=== PATIENT | female | born 1970 | race Caucasian/White ===

== ENCOUNTER 2017-06-04 16:22 | Emergency (ER) | payer OTHER | END 2017-06-04 18:15 | disposition home or self-care (01) | LOC: D.ER 16:22 | DX: S80.01XA Contusion of right knee, initial encounter (principal); W10.9XXA Fall (on) (from) unspecified stairs and steps, initial encounter; Y93.89 Activity, other specified; Y92.029 Unspecified place in mobile home as the place of occurrence of the external cause; S93.401A Sprain of unspecified ligament of right ankle, initial encounter; S81.011A Laceration without foreign body, right knee, initial encounter; M32.9 Systemic lupus erythematosus, unspecified ==

== ENCOUNTER 2018-11-18 16:35 | Inpatient (IN) | payer BC, MEDICARE ==
[~2018-11-18] VITALS: Ht 165.1 cm; Wt 86.4 kg
[2018-11-18] MEDS ORDERED: PLAQUENIL (16:59)
[2018-11-18] MEDS ORDERED: SALAGEN5 MG (17:00)
[2018-11-18] MEDS ORDERED: MEDROL4 MG PO (17:00)
[2018-11-18] MEDS ORDERED: ALDACTONE25 MG PO (17:00)
[2018-11-18] MEDS ORDERED: PEPCID AC20 MG PO ×2 (17:01→20:20)
[2018-11-18] MEDS ORDERED: VITAMIN D31000 UNIT PO (17:01)
[2018-11-18] MEDS ORDERED: ZYRTEC10 MG PO (17:01)
[2018-11-18] MEDS ORDERED: VALTREX1000 MG (17:02)
[2018-11-18] MEDS ORDERED: PREDNISONE10 MG PO (17:02)
[2018-11-18 17:44] LABS: BASOPHILS 0 % (0-2); EOSINOPHILS 0 % (0-7); HEMATOCRIT 41.5 % (36.0-48.0); HEMOGLOBIN 14.6 g/dL (12-16); IMMATURE GRANULOCYTES 0.2 % (0-5); LYMPHOCYTES 4.4 % (15-50); MCH 32.5 pg (26.0-34.0); MCHC 35.2 g/dL (31.0-37.0); MCV 92.4 fL (80.0-100.0); MEAN PLATELET VOLUME 10.6 fL (7.4-10.4); MONOCYTES 2.3 % (2-11); NEUTROPHILS 93.1 % (40-80); PLATELET COUNT 215 10x3/uL (130-400); RBC 4.49 10x6/uL (4.00-5.40); RDW 13.1 % (11.5-14.5); WBC 13.3 10x3/uL (4.8-10.8)
[2018-11-18 17:59] LABS: ALBUMIN 2.9 g/dL (3.4-5.0); ANION GAP 15.5 mmol/L (8-16); BILIRUBIN - TOTAL 0.4 mg/dL (0.2-1.3); CALCIUM 9.4 mg/dL (8.5-10.1); CARBON DIOXIDE 25.2 mmol/L (21.0-32.0); POTASSIUM - SERUM 3.7 mmol/L (3.5-5.1); PROTEIN - SERUM 7.7 g/dL (6.4-8.2)
[2018-11-18 18:17] LABS: C-REACTIVE PROTEIN 72.3 mg/dL (0.0-0.9)
[2018-11-18 18:30] LABS: APPEARANCE CLEAR (CLEAR); BILIRUBIN 1+ (NEGATIVE); COLOR DK YELLOW (YELLOW); GLUCOSE NEGATIVE (NEGATIVE); KETONE NEGATIVE (NEGATIVE); NITRITE POSITIVE (NEGATIVE); PROTEIN 1+ mg/dL (NEGATIVE); SPECIFIC GRAVITY 1.025 (1.005-1.020)
[2018-11-18 18:37] LABS: WHITE CELLS - URINE 0-5 /hpf (0-5)
[2018-11-18 18:38] LABS: BACTERIA FEW /hpf (NONE SEEN); EPITHELIAL CELLS 0-5 /hpf (0-5)
[2018-11-18 18:47] LABS: APTT 30.9 SECONDS (22.8-39.4); INR 1.06 (0.85-1.17); PROTIME 13.3 SECONDS (11.6-15.0)
[2018-11-18 19:15] LABS: CKMB 0.3 U/L (0.0-3.6); CREATINE KINASE 30 UL (21-215)
[2018-11-18 19:16] LABS: TROPONIN-I < 0.017 ng/mL (0.000-0.060)
--- NOTE | 2018-11-18 19:50 | NUR ---
RECEIVED PT FROM ER VIA W/C. AMBULATORY. ALERT AND ORIENTED X4. VERY TALKATIVE. NO DISTRESS. STATES SHE HAD NO IDEA SHE HAD PNEUMONIA BECAUSE SHE ALWAYS HAS SOME SOB. DENIES COUGH. REPORTS SOME GEN WEAKNESS. RESP EVEN AND NONLABORED. BBS DIMINISHED IN BILAT UPPER LOBES. ABD OBESE, NONTENDER. BS PRESENT X4 QUADS. 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 STATES IT CAME UP TODAY. HAS HX OF LUPUS AND MRSA. RT KNEE IS RED AND SLIGHTLY SWOLLEN AND FEELS LIKE IT HAS FLUID IN IT. SALINE LOCK NOTED TO LT FOREARM WITH ROCEPHIN INFUSING. DENIES PAIN. ACCOMPANIED BY FAMILY. SR ELEVATED X2. CL IN REACH.
[2018-11-18 20:40] VITALS: BP 123/84
[2018-11-18 23:27] VITALS: BP 123/84; BMI 31.6
[2018-11-19 00:15] VITALS: BP 109/50
[2018-11-19 01:32] LABS: CKMB 0.3 U/L (0.0-3.6); CREATINE KINASE 20 UL (21-215); TROPONIN-I < 0.017 ng/mL (0.000-0.060)
--- NOTE | 2018-11-19 04:17 | NUR ---
HAS RESTED WELL TONIGHT. NO DISTRESS. CL IN REACH.
[2018-11-19 04:46] VITALS: BP 112/62
[2018-11-19 07:30] LABS: CKMB 0.2 U/L (0.0-3.6); CREATINE KINASE 22 UL (21-215)
[2018-11-19 07:31] LABS: TROPONIN-I < 0.017 ng/mL (0.000-0.060)
[2018-11-19 07:45] LABS: BASOPHILS 0.1 % (0-2); EOSINOPHILS 0.7 % (0-7); HEMATOCRIT 35.1 % (36.0-48.0); HEMOGLOBIN 12.1 g/dL (12-16); IMMATURE GRANULOCYTES 0.2 % (0-5); LYMPHOCYTES 7.2 % (15-50); MCH 32.1 pg (26.0-34.0); MCHC 34.5 g/dL (31.0-37.0); MCV 93.1 fL (80.0-100.0); MEAN PLATELET VOLUME 10.9 fL (7.4-10.4); NEUTROPHILS 84.8 % (40-80); PLATELET COUNT 176 10x3/uL (130-400); RBC 3.77 10x6/uL (4.00-5.40); RDW 13.2 % (11.5-14.5)
--- NOTE | 2018-11-19 08:00 | NUR ---
AWAKE AND ALERT. ORIENTED X3. NO C/O AT THIS TIME. LUNGS ARE CLEAR BUT DIMINISHED THROUGHOUT, NO COUGH NOTED. SKIN IS INTACT WITH BRUISING NOTED TO LOWER ABDOMEN AND OUTER TOPS OF THIGHS. WILL MONITOR. IV TO LEFT WRIST IS PATENT WITHOUT REDNESS AT INSERTION SITE. DENIES NEEDS. BREAKFAST SERVED IN ROOM.
[2018-11-19 08:01] LABS: WBC 8.8 10x3/uL (4.8-10.8)
[2018-11-19 09:33] VITALS: BP 117/71
--- NOTE | 2018-11-19 10:39 | NUR ---
ATE MOST OF BREAKFAST. DENIES NEEDS.
[2018-11-19 11:06] VITALS: Ht 165.1 cm; Wt 86.4 kg
[2018-11-19 12:04] VITALS: BP 115/72
[2018-11-19 14:19] LABS: COMPLEMENT C4 22.3 mg/dL (17.4-52.2)
--- NOTE | 2018-11-19 14:44 | NUR ---
C/O NAUSEA AT THIS TIME. GIVEN 4MG ZOFRAN SLOW IVP FOR SAME. WILL MONITOR.
[2018-11-19 18:15] VITALS: BP 123/82
--- NOTE | 2018-11-19 19:15 | NUR ---
PT AAOX4. ABDOMEN PRESENTS WITH BRUISING AND RED STRETCH PAINTING. BRUISING EXTENDS TO THE GROIN AND MID THIGH AREA. BRUISES ALSO EXTENDS TO BILATERAL SIDES. DENIES ITCHING AND SCRATCHING. DENIES PAIN. STATES "I HAVE LUPUS AND EVERYTIME I HAVE A FLARE UP ITS SOME OFF THE WALL REACTION." IV TO THE RIGHT FOREARM IS SALINE LOCKED. PT WEARING TELEMETRY. DENIES NEEDS AT THIS TIME. HAS CALL LIGHT IN REACH. REFUSES TO WEAR SCD'S THAT ARE ORDERED. HAS COMPRESSION SOCKS AT BEDSIDE THAT PT STATES WEARS AT NIGHT.
[2018-11-19 20:27] VITALS: BP 130/84
--- NOTE | 2018-11-20 04:10 | NUR ---
I have reviewed this patient and I concur with the Shift Assessment completed by the Licensed Practical Nurse today this shift.
[2018-11-20 05:28] VITALS: BP 114/61
[2018-11-20 07:07] LABS: CALC OSMOLALITY 285 mosm/kg (275-300); CALCIUM 8.9 mg/dL (8.5-10.1); CARBON DIOXIDE 25.5 mmol/L (21.0-32.0); CHLORIDE - SERUM 107 mmol/L (98-107); GLUCOSE 128 mg/dL (74-106); POTASSIUM - SERUM 4.2 mmol/L (3.5-5.1); SODIUM 141 mmol/L (136-145); UREA NITROGEN 20 mg/dL (7-18)
[2018-11-20 07:12] LABS: CREATININE - SERUM 0.7 mg/dL (0.6-1.3); eGFR NON AFRICAN AMERICAN > 90 mL/min (90-120)
[2018-11-20 07:13] LABS: BASOPHILS 0 % (0-2); EOSINOPHILS 0 % (0-7); HEMATOCRIT 38.4 % (36.0-48.0); HEMOGLOBIN 13.1 g/dL (12-16); IMMATURE GRANULOCYTES 0.2 % (0-5); LYMPHOCYTES 6.1 % (15-50); MCH 31.7 pg (26.0-34.0); MCHC 34.1 g/dL (31.0-37.0); MEAN PLATELET VOLUME 10.7 fL (7.4-10.4); MONOCYTES 2.5 % (2-11); NEUTROPHILS 91.2 % (40-80); RBC 4.13 10x6/uL (4.00-5.40); RDW 12.7 % (11.5-14.5); WBC 8.4 10x3/uL (4.8-10.8)
[2018-11-20 07:14] LABS: PLATELET COUNT 223 10x3/uL (130-400)
--- NOTE | 2018-11-20 07:43 | NUR ---
RESUMING PT CARE, PT SITTING UP IN BED, ALERT AND ORIENTED. CALL LIGHT IN REACH, WILL CONTINUE TO MONITOR AND FOLLOW PLAN OF CARE.
[2018-11-20 07:49] VITALS: BP 133/85
[2018-11-20 08:20] LABS: ERYTHROCYTE SEDIMENTATION RATE 58 mm/hr (0-20)
[2018-11-20] MEDS ORDERED: ZITHROMAX500 MG PO (08:29)
[2018-11-20] MEDS ORDERED: OMNICEF300 MG PO (08:30)
[2018-11-20] MEDS ORDERED: PREDNISONE10 MG PO (08:31)
--- NOTE | 2018-11-20 09:53 | NUR ---
PER TWYLA FLORES APRN, MAY CALL IN YOHAN OSWALD TO PT[facility]S [facility] TO GO HOME WITH, SPOKE WITH TEREZA CURRAN AND SHE WILL CALL THEM IN ALONG WITH DOING HER D/C PAPERWORK.
[2018-11-20] MEDS ORDERED: ZOFRAN4 MG PO (10:19)
--- NOTE | 2018-11-20 10:22 | NUR ---
RX FOR ZOFRAN 4 MG #10NR CALLED IN TO [facility]. OK PER TWYLA FLORES APN.
--- NOTE | 2018-11-20 10:24 | MORECARE ---
CASE MANAGEMENT DISCHARGE SUMMARY PATIENT: MICHELLE GONZALEZ UNIT: [id number] ADM DATE: 11/18/18 AGE: 48 : 70 SEX: F ROOM/BED: D.1201 AUTHOR: ELDA ROBERT PHYSICIAN: REFERRING PHYSICIAN: MISTI EDMOND MD DATE OF SERVICE: 11/20/18 Discharge Plan Patient Name: MICHELLE GONZALEZ Facility: [facility]:[place] : 1970 Planned Disposition: Home Anticipated Discharge Date: Discharge Date: Expected LOS: Initial Reviewer: [email or web address] Initial Review Date: 11/20/2018 Generated: 11/20/18 11:24 am DCPIA - Discharge Planning Initial Assessment Updated by [email or web address]: Margaux Vidal on 11/20/18 10:22 am * Is the patient Alert and Oriented? Yes * How many steps to enter\exit or inside your home? * PCP cait Zhong APN * Pharmacy [facility] * Preadmission Environment Home with Family * ADLs Independent * List name and contact numbers for known caregivers / representatives who currently or will assist patient after discharge: * Verbal permission to speak to the caregivers and representatives has been obtained from the patient. N/A * Community resources currently utilized None * Additional services required to return to the preadmission environment? No * Can the patient safely return to the preadmission environment? Yes * Has this patient been hospitalized within the prior 30 days at any hospital? No Patient Name: MICHELLE GONZALEZ Page [id number] at 1024 All edits/amendments must be made on the electronic document DICTATION DATE: 11/20/18 1023 ENGINE REPAIRER SERVICE: VALARIE 11/20/18 1023 RPT#: [id number] DC DATE: STATUS: ADM IN [facility] [address] [place] [address] END OF REPORT
--- NOTE | 2018-11-20 10:30 | MORECARE ---
CASE MANAGEMENT DISCHARGE SUMMARY PATIENT: MICHELLE GONZALEZ UNIT: [id number] ADM DATE: 11/18/18 AGE: 48 : 70 SEX: F ROOM/BED: D.1201 AUTHOR: JAKOB,DOC PHYSICIAN: REFERRING PHYSICIAN: MISTI EDMOND MD DATE OF SERVICE: 11/20/18 Discharge Plan Patient Name: MICHELLE GONZALEZ Facility: [facility]:[place] : 1970 Planned Disposition: Home Anticipated Discharge Date: Discharge Date: Expected LOS: Initial Reviewer: [email or web address] Initial Review Date: 11/20/2018 Generated: 11/20/18 11:30 am Comments DCP- Discharge Planning Updated by [email or web address]: Margaux Vidal on 11/20/18 9:[address] Patient Name: MICHELLE GONZALEZ Admission Status: ER Accout number: [id number] Admission Date: 11-18-2018 : 1970 Admission Diagnosis: Attending: MISTI EDMOND Current LOS: 2 Anticipated DC Date: Planned Disposition: Home Primary Insurance: MEDICARE A & B Discharge Planning Comments: Cm met with pt to complete initial DC pans. Educated pt on CM role and verbal consent given to do assessment. Pt lives at home with and he will drive her home at DC. CM discussed the availability of Home health, rehab, and DME services. Pt denies the need for any dc needs at this time. CM will continue to follow and assist with dc needs and plans, IMM served Central Office Installer: Margaux Vidal DCPIA - Discharge Planning Initial Assessment Updated by [email or web address]: Margaux Vidal on 11/20/18 10:22 am * Is the patient Alert and Oriented? Yes * How many steps to enter\exit or inside your home? * PCP cait Zhong APN * Pharmacy [facility] * Preadmission Environment Home with Family * ADLs Independent * List name and contact numbers for known caregivers / representatives who currently or will assist patient after discharge: * Verbal permission to speak to the caregivers and representatives has been obtained from the patient. N/A * Community resources currently utilized None * Additional services required to return to the preadmission environment? No * Can the patient safely return to the preadmission environment? Yes * Has this patient been hospitalized within the prior 30 days at any hospital? No Coverage Notice Reviewer: [email or web address] Natali Vidal Notice Issued Date-Time: 11/20/2018 9:30 Notice Type: IM Discharge Notice Notice Delivered To: Patient Relationship to Patient: Self Transportation Maintenance Specialist Name: Delivery Method: HAND - Hand Delivered Sandra Days: Prior Verbal Notification: Recipient Understood Notice: Yes Recipient Signature: Yes Med Rec Note Co-signed by Attending: Coverage Notice Comment: imm served Last DP export: 11/20/18 9:24 a Patient Name: MICHELLE GONZALEZ Page [phone] at 1030 All edits/amendments must be made on the electronic document DICTATION DATE: 11/20/18 1030 FINANCIAL PROJECT MANAGER: VALARIE 11/20/18 1030 RPT#: [id number] DC DATE: STATUS: ADM IN [facility] [address] [place] [address] END OF REPORT
--- NOTE | 2018-11-20 10:45 | NUR ---
D/C INSTRUCTIONS GONE OVER WITH PT AND SPOUSE, COPY GIVEN. 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 TAKEN TO CAR VIA WHEELCHAIR.
--- NOTE | 2018-11-20 12:55 | MORECARE ---
CASE MANAGEMENT DISCHARGE SUMMARY PATIENT: MICHELLE GONZALEZ UNIT: [id number] ADM DATE: 11/18/18 AGE: 48 : 70 SEX: F ROOM/BED: D.1201 AUTHOR: JAKOB,DOC PHYSICIAN: REFERRING PHYSICIAN: MISTI EDMOND MD DATE OF SERVICE: 11/20/18 Discharge Plan Patient Name: MICHELLE GONZALEZ Facility: [facility]:[place] : 1970 Planned Disposition: Home Anticipated Discharge Date: Discharge Date: 11/20/2018 Expected LOS: Initial Reviewer: [email or web address] Initial Review Date: 11/20/2018 Generated: 11/20/18 1:55 pm Comments DCP- Discharge Planning Updated by [email or web address]: Margaux Vidal on 11/20/18 11:[address] Patient Name: MICHELLE GONZALEZ Admission Status: ER Accout number: [id number] Admission Date: 11-18-2018 : 1970 Admission Diagnosis: Attending: MISTI EDMOND Current LOS: 2 Anticipated DC Date: Planned Disposition: Home Primary Insurance: MEDICARE A & B Discharge Planning Comments: Cm met with pt to complete initial DC pans. Educated pt on CM role and verbal consent given to do assessment. Pt lives at home with and he will drive her home at DC.Pt agrees this is a safe dc. CM discussed the availability of Home health, rehab, and DME services. Pt denies the need for any dc needs at this time. CM will continue to follow and assist with dc needs and plans, IMM served Gut Sorter: Margaux Vidal DCPIA - Discharge Planning Initial Assessment Updated by [email or web address]: Margaux Vidal on 11/20/18 10:22 am * Is the patient Alert and Oriented? Yes * How many steps to enter\exit or inside your home? * PCP cait Zhong APN * Pharmacy [facility] * Preadmission Environment Home with Family * ADLs Independent * List name and contact numbers for known caregivers / representatives who currently or will assist patient after discharge: * Verbal permission to speak to the caregivers and representatives has been obtained from the patient. N/A * Community resources currently utilized None * Additional services required to return to the preadmission environment? No * Can the patient safely return to the preadmission environment? Yes * Has this patient been hospitalized within the prior 30 days at any hospital? No Coverage Notice Reviewer: [email or web address] Natali Vidal Notice Issued Date-Time: 11/20/2018 9:30 Notice Type: IM Discharge Notice Notice Delivered To: Patient Relationship to Patient: Self Carbonizer Name: Delivery Method: HAND - Hand Delivered Sandra Days: Prior Verbal Notification: Recipient Understood Notice: Yes Recipient Signature: Yes Med Rec Note Co-signed by Attending: Coverage Notice Comment: imm served Last DP export: 11/20/18 9:30 a Patient Name: MICHELLE GONZALEZ Page [phone] at 1255 All edits/amendments must be made on the electronic document DICTATION DATE: 11/20/18 125 SUPERVISOR STAVE CUTTING: VALARIE 11/20/18 1255 RPT#: [id number] DC DATE:11/20/18 STATUS: DIS IN [facility] [address] [place] [address] END OF REPORT
--- NOTE | 2018-11-20 13:34 | MORECARE ---
CASE MANAGEMENT DISCHARGE SUMMARY PATIENT: MICHELLE GONZALEZ UNIT: [id number] ADM DATE: 11/18/18 AGE: 48 : 70 SEX: F ROOM/BED: D.1201 AUTHOR: ELDA ROBERT PHYSICIAN: REFERRING PHYSICIAN: MISTI EDMOND MD DATE OF SERVICE: 11/20/18 Discharge Plan Patient Name: MICHELLE GONZALEZ Facility: [facility]:[place] : 1970 Planned Disposition: Home Anticipated Discharge Date: Discharge Date: 11/20/2018 Expected LOS: Initial Reviewer: [email or web address] Initial Review Date: 11/20/2018 Generated: 11/20/18 2:34 pm Comments DCP- Discharge Planning Updated by [email or web address]: Margaux Vidal on 11/20/18 12:[address] Patient Name: MICHELLE GONZALEZ Admission Status: ER Accout number: [id number] Admission Date: 11-18-2018 : 1970 Admission Diagnosis: Attending: MISTI EDMOND Current LOS: 2 Anticipated DC Date: Planned Disposition: Home Primary Insurance: MEDICARE A & B Discharge Planning Comments: Cm met with pt to complete initial DC pans. Educated pt on CM role and verbal consent given to do assessment. Pt lives at home with and he will drive her home at DC.Pt agrees this is a safe dc. CM discussed the availability of Home health, rehab, and DME services. Pt denies the need for any dc needs at this time. CM will continue to follow and assist with dc needs and plans, IMM delivered, explained, signed and copy placed in MR and copy left for PT Ob Gyn: Margaux Vidal DCP- Discharge Planning Updated by [id number]: Margaux Vidal on 11/20/18 12:[address] Patient Name: MICHELLE GONZALEZ Admission Status: ER Accout number: [id number] Admission Date: 11-18-2018 : 1970 Admission Diagnosis: Attending: MISTI EDMOND Current LOS: 2 Anticipated DC Date: Planned Disposition: Home Primary Insurance: BLUE CROSS OUT OF STATE Discharge Planning Comments: PT dc'd home Ob Gyn: Margaux Vidal DCPIA - Discharge Planning Initial Assessment Updated by [email or web address]: Margaux Vidal on 11/20/18 10:22 am * Is the patient Alert and Oriented? Yes * How many steps to enter\exit or inside your home? * PCP cait Zhong APN * Pharmacy [facility] * Preadmission Environment Home with Family * ADLs Independent * List name and contact numbers for known caregivers / representatives who currently or will assist patient after discharge: * Verbal permission to speak to the caregivers and representatives has been obtained from the patient. N/A * Community resources currently utilized None * Additional services required to return to the preadmission environment? No * Can the patient safely return to the preadmission environment? Yes * Has this patient been hospitalized within the prior 30 days at any hospital? No Coverage Notice Reviewer: [id number] - Margaux Vidal Notice Issued Date-Time: 11/20/2018 9:30 Notice Type: IM Discharge Notice Notice Delivered To: Patient Relationship to Patient: Self Leather Etcher Name: Delivery Method: HAND - Hand Delivered Sandra Days: Prior Verbal Notification: Recipient Understood Notice: Yes Recipient Signature: Yes Med Rec Note Co-signed by Attending: Coverage Notice Comment: imm served Last DP export: 11/20/18 11:55 a Patient Name: MICHELLE GONZALEZ Page [phone] at 1334 All edits/amendments must be made on the electronic document DICTATION DATE: 11/20/181333 SUGAR CANE PLANTER: VALARIE 11/20/18 1334 RPT#: [id number] DC DATE:11/20/18 STATUS: DIS IN [facility] [address] [place] [address] END OF REPORT
--- NOTE | 2018-11-20 16:12 | CN ---
PATIENT NAME:LORI GONZALEZ MEDICAL RECORD: [id number] : [birth year] LOCATION:[place] D.1201 ADMIT DATE: 11/18/18 ACCOUNT: [id number] CONSULTING PHYSICIAN: SHASHANK COTTO MD REFERRING PHYSICIAN: MISTI EDMOND MD DATE OF CONSULTATION: 11/19/2018 RHEUMATOLOGY CONSULTATION HISTORY OF PRESENT ILLNESS: Lori Gonzalez is a 48-year-old woman well known to me, whom I am asked to see regarding acute symptoms. The patient has a very longstanding history of SLE and has had very quiet inactive disease for many years. At home, she was well managed on Medrol 4 mg daily, hydroxychloroquine 200 mg b.i.d. She has dry eyes, for which she uses pilocarpine. Lab serologies performed in January 2018 have been remarkably stable with low titer MARIANNE, normal C3, normal C4, negative DNA, normal renal function, normal CBC. She often has mild microhematuria, which has been a chronic problem, but no evidence of active nephritis. The patient reports that 9 days ago she had not eaten well. That day was at a store, felt lightheaded and weak, went home and ate. That evening, she had some shaking chills for less than 2 hours, resolved and has not recurred. About the next day, she had some apical anterior chest "heaviness," for which she used aspirin 81 mg once only and that did not recur. She has had a few recent aches and pains, which are nonspecific. However, over the last 24 hours, she has developed some slight erythema and tenderness over the right prepatellar area, but she denies any kneeling, squatting, or other direct trauma. She called the office late yesterday afternoon reporting some "petechiae" or bruising around her abdomen and anterior thighs. She was advised to head straight to the Emergency Room, which prompted her current admission. She has bruising type blotches over the lower abdomen, sides of her hips, anterolateral thighs. She does not have discrete petechiae. She does not have palpable purpura. The lesions do not extend below the knees except for some faint bruising today around the upper shins. These have not affected her arms or hands. On admission, she has remained afebrile and blood pressure has been normal. On admission, she had microhematuria with positive nitrite, few bacteria. Culture not reported. She had WBC of 13,300, hemoglobin 14.6, platelets 215,000. BUN 24, creatinine 1. AST 70, ALT 22, CPK is 30, C-reactive protein 72.3, albumin is 2.9, globulin is 4.8. Today WBC has decreased to 8800, hemoglobin 12.1, platelets 176,000. C3 of 133, C4 of 22. Troponin less than 0.017. Chest x-ray showed mild interstitial edema, possible small pleural effusion with adjacent atelectasis. On admission, the patient was continued on Medrol 4 mg daily and Solu-Medrol 40 mg IV daily was added. She continued on home dose of hydroxychloroquine 200 mg CONSULT REPORT [id number] LORI GONZALEZ b.i.dOscar, pilocarpine 5 mg p.r.n., spironolactone 25 mg daily, Kacie daily, Protonix 40 mg twice daily, Mag-Ox, acetaminophen, vitamin D 3000 units daily, Rocephin 1 g IV every 24 hours, Zithromax 500 mg IV every 24 hours. Today, she feels well. She denies fever, chills, or sweats. She still has the bruising, which may have extended a little bit in the upper shins. She has some mild erythema in the right prepatellar area, but no xiomy inflammation of any joints. She denies any current chest pain, dyspnea, abdominal pain. PAST MEDICAL HISTORY: She was diagnosed with lupus in the early . In the distant past, she had problems with marked hypercalcemia, other unusual problems. She was evaluated at [facility], [facility], [facility]. In the distant past, she received at various times Imuran, IV Cytoxan, CellCept. She has been off of all of those medications since at least 2009. Since that time, her disease has been maintained on Medrol 4 mg daily and hydroxychloroquine. The patient reports she developed glaucoma about a year ago, has been on drops twice daily. She is 6, para 3, spontaneous AB 3. She has never had a documented antiphospholipid syndrome. She had remote pleural effusion requiring thoracentesis and ultimately pleurodesis in 2002. She had lung biopsy in 2002. ALLERGIES: SHE IS ALLERGIC TO DEMEROL. SOCIAL HISTORY: She does not smoke or drink alcohol. 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 FAMILY HISTORY: Both her parents have . No known family history of lupus or connective tissue disease. REVIEW OF SYSTEMS: See present illness. She has not had alopecia, recent photosensitivity, aphthae, vertigo, tinnitus, hearing loss. She did have a little bit of diarrhea over the preceding weekend. She was exposed to her daughter's flu 2 weeks ago. She has not had any tick bites. PHYSICAL EXAMINATION: VITAL SIGNS: Blood pressure 150/72, pulse 92 and regular, respirations 20, temperature 97. GENERAL: She is a well-developed woman, in no acute distress. HEENT: Head: Normal female hair pattern. Eyes: Conjunctivae are minimally injected, without exudate. Mouth is moist without lesions. NECK: Free of adenopathy or masses. LUNGS: Clear. CARDIOVASCULAR: S1 and S2 are normal without gallop, murmur, or rub. Carotids are 2+ without delay or bruit. Pedal pulse 2+. No dependent edema. ABDOMEN: Soft, nontender, without mass or organomegaly. MUSCULOSKELETAL: The right prepatellar area has some mild erythema, warmth, slight tenderness, but without discrete swelling. There is no definite bursitis. Left anterior knee is nontender. There is no inflammation of either knee joint, ankles, feet, wrists, fingers. NEUROLOGIC: She is alert and oriented. Moves all extremities well. Speech is fluent. There are no lateralizing signs. SKIN: She has some blotchy bruising type patches on the right lateral iliac crest on the abdomen, some on the anterior lateral thighs, now some faint ones CONSULT REPORT [id number] LORI GONZALEZ over the upper shins. There is no evidence of petechiae, palpable purpura, malar rash, discoid lupus, or Raynaud's. IMPRESSION: 1. Systemic lupus erythematosus. A. Onset in early . B. Remote problems with marked hypercalcemia of undetermined cause. C. Remote treatment with immunosuppressive drugs before 2009. D. Lupus has been fairly quiet for the last 9 years on hydroxychloroquine and low-dose Medrol. E. 6, para 3, spontaneous AB 3 without known antiphospholipid syndrome. F. Remote history of pleural effusions with thoracentesis. G. Remote history of lung biopsy. 2. Current purpuric blotches of abdomen and lower extremities, mild leukocytosis, marked elevation of CRP, right prepatellar erythema, abnormal urine with positive nitrite, hematuria. RECOMMENDATIONS: 1. MARIANNE with reflex. 2. Double-stranded DNA. 3. ESR. 4. Continue Medrol 4 mg daily. 5. Continue hydroxychloroquine 200 mg b.i.d. 6. Continue antibiotics. 7. Continue supportive care. 8. RMSF titers. DISCUSSION: 1. The cause of current problem is unknown. If this is a lupus flare, it is very peculiar. She has not flared for at least 10 years. 2. She does have a history of occasional arthralgias, but has not had rash of this type. 3. We will continue with intermediate dose of Solu-Medrol pending the results of additional testing. It will be definitely worthwhile to continue antibiotics. TRANSINT:[id number] Voice Confirmation ID: [id number] DOCUMENT ID: [id number] SHASHANK COTTO MD at 1612 CC: [id number] DICTATION DATE: 11/19/18 174 LAST MARKER: 11/20/18 0644 DIS IN 11/20/18 [facility] [address] [place] [address]
[2018-11-22 12:10] LABS: ANA REFLEX - DBL STRANDED DNA <1 IU/mL (0-9); ANA REFLEX - DIRECT Negative (Negative)
[2018-11-24 03:07] LABS: RMSF IGM 0.32 index (0.00-0.89)
--- NOTE | 2018-11-24 10:39 | EC ---
PATIENT:MICHELLE GONZALEZ DATE OF SERVICE: 11/18/18 SEX: F MEDICAL RECORD: [id number] DATE OF : [birth year] LOCATION:D.M3 D.120 AGE OF PATIENT: 48 ADMISSION DATE: 11/18/18 REFERRING PHYSICIAN: INTERPRETING PHYSICIAN: ARA MUSA MD ECHOCARDIOGRAM REPORT ECHO CHARGES 4 ECHO COMPLETE Date: 11/19/18 CLINICAL DIAGNOSIS: PULMONARY EDEMA ECHOCARDIOGRAPHIC MEASUREMENTS (adult normal given) AC root (d.<3.7cm) 3.1 cm LV Septum d (<1.2 cm> 1.2 cm Valve Excursion 1.3 cm LV Septum (systole) 1.4 cm Left Atria (s.<4.0cm> 2.8 cm LVPW d(<1.2cm) 1.1 cm RV (d.<2.3cm) 2.8 cm LVPW (sytole) 1.8 cm LV diastole(<5.6CM) 5.6 cm MV E-F(>70mm/sec) cm LV systole 4.4 cm LVOT Diameter 1.7 cm MV exc.(>10mm) cm Est.ejection fraction (50-75%) % DOPPLER: LVIT cm/sec A 68 cm/sec E 57 cm/sec LA cm/sec RVSP 17.8 mmHg LVOT 83 cm/sec AOP1/2T m/s Asc. Ao 151 cm/sec RVOT 79 cm/sec RA cm/sec PA 114 cm/sec AV Gradient Peak 9.1 mmHg AV Mean 4.8 mmHg AV Area 1.4 cm MV Gradient Peak 3.1 mmHg MV Mean 1.9 mmHg MV Area cm COMMENTS: Plastic Jig And Fixture Builder: Felicia MIXON Clinical Research Tech: 1 Dr. Musa TAPE# PACS Pericardial Effusion N DATE OF SERVICE: 11/19/2018 FINDINGS: 1. Left ventricular chamber size is within normal limits. Left ventricular systolic function is normal. Overall ejection fraction estimated at 60%. 2. Left atrium, right atrium, and right ventricular chamber sizes are within normal limits. 3. Valvular structures have normal structure and motion. 4. Doppler interrogation reveals mild tricuspid regurgitation, no other valvular insufficiency or stenosis. Pulmonary systolic pressure is normal, ECHOCARDIOGRAM REPORT [id number] MICHELLE GONZALEZ estimated at 18 mmHg. 5. No evidence of pericardial effusion or left ventricular thrombus. TRANSINT:[id number] Voice Confirmation ID: [id number] DOCUMENT ID: [id number] ARA MUSA MD at 1039 CC: [id number] DICTATION DATE: 11/20/18950 PIPELINE OPERATOR: 11/20/18 1008 DIS IN 11/20/18 [place] [id number] [place] [id number]
== END 2018-11-20 10:47 | disposition home or self-care (01) | DRG 546 ==
LOC: D.ER 16:35 → D.M3 19:08
PROVIDERS: Emergency Medicine; Internal Medicine Rheumatology; ADMIT Internal Medicine Nephrology; ATTEND Internal Medicine Nephrology
DX: M32.9 Systemic lupus erythematosus, unspecified (principal); N39.0 Urinary tract infection, site not specified; N17.9 Acute kidney failure, unspecified; D69.2 Other nonthrombocytopenic purpura